=== PATIENT | male | born 1985 | race African-American/Black ===

== ENCOUNTER 2024-12-07 17:10 | Emergency (ER) | payer OTHER ==
[~2024-12-07] VITALS: Ht 177.8 cm; Wt 113.0 kg
[2024-12-07 17:14] VITALS: BP 0/0; PULSE 0; RESP 16; O2SAT 65
[2024-12-07 17:25] VITALS: TEMP 36.3
== END 2024-12-07 17:25 ==
LOC: ER 17:10
DX: I46.9 Cardiac arrest, cause unspecified (principal); I11.0 Hypertensive heart disease with heart failure; Z79.899 Other long term (current) drug therapy
CPT/HCPCS: 82962; 36556; 92950; 99285; Z7610